=== PATIENT | female | born 1980 | race Caucasian/White ===

== ENCOUNTER 2020-06-09 23:13 | Emergency (ER) | payer MEDICAID ==
[~2020-06-09] VITALS: Ht 180.3 cm; Wt 82.0 kg
[2020-06-09 23:13] VITALS: BP 152/102
[~2020-06-09 23:13] MED LIST: CEPH-264 PO; OMEP20CA16 PO; OXYC5TAB4 PO; PROM25TA10 PO; [UNRECOGNIZED DRUG - OTHER]
--- NOTE | 2020-06-10 00:13 | PHYS DOC ---
Past History Past Medical History: Liver Disease, UTI Past Surgical History: Appendectomy, Cholecystectomy, , Hysterectomy Smoking: Cigarettes, Quit Less Than 1 Year Alcohol Use: Occasionally Drug Use: None, Marijuana General Adult EDM: Chief Complaint: DENTAL PROBLEM HPI: HPI: "...I got bad left ear and now bad tooth. On the right lower.... I tried to pull it out.. but .. I think it is infected. now.." Patient is a 39 year old female who presents with above hx and complaints of dental pain at 31. Pt. also complaints Lt ear pain. Patient apparently has used pliers in attempt to remove tooth #31. Apparently has retained roots at the site with obvious infection and drainage. Entire right side of face is swollen. Does have adenopathy at angle jaw and neck. Patient has multiple other areas of dental decay. Patient also has obvious otitis media in left ear. Patient denies any history immunosuppression. No recent travel outside [facility]. No specific ill contacts. Patient does smoke tobacco marijuana. Review of Systems: Review of Systems: Constitutional: Complains of fever or chills Eyes: Denies change in visual acuity HENT: Complains of left ear pain and right jaw pain and facial cellulitis Respiratory: Denies cough or shortness of breath Cardiovascular: Denies chest pain or edema GI: Denies abdominal pain, nausea, vomiting, bloody stools or diarrhea : Denies dysuria Musculoskeletal: Denies back pain or joint pain Integument: Denies rash Neurologic: Denies headache, focal weakness or sensory changes Endocrine: Denies polyuria or polydipsia Lymphatic: Denies swollen glands Psychiatric: Denies depression or anxiety Family History: Family History: Noncontributory to presentation Current Medications: Current Meds: See nursing for home meds Allergies: Allergies: Allergies Coded Allergies Type Severity Reaction Last Updated Verified adhesive Allergy Mild Rash 07/10/13 Yes Physical Exam: PE: Constitutional: in acute distress, non-toxic appearance. [] HENT: Normocephalic, has obvious extraction site at tooth 31 with retained roots, drainage and inflammation, bilateral external ears normal, left TM has fluid and injection, oropharynx moist, no oral exudates, nose swollen turbinates clear rhinorrhea. Facial cellulitis on right with edema and swelling. Eyes: PERRLA, EOMI, conjunctiva normal, no discharge. [] Neck: Normal range of motion, no tenderness, supple, no stridor. Adenopathy at angle of right mandible and anterior cervical chain. Cardiovascular: Tachycardia heart rate regular rhythm, no murmur [] Lungs & Thorax: Bilateral breath sounds equal apex with scattered wheezes on auscultation [] Abdomen: Bowel sounds normal, soft, no tenderness, no masses, no pulsatile masses. Old surgical scars Skin: Warm, dry, no erythema, no rash. [] Back: No tenderness, no CVA tenderness. [] Extremities: No tenderness, no cyanosis, no clubbing, ROM intact, no edema. [] Neurologic: Alert and oriented X 3, normal motor function, normal sensory function, no focal deficits noted. [] Psychologic: Affect anxious, judgement normal, mood normal. [] EKG: EKG: [] Radiology/Procedures: Radiology/Procedures: [] Heart Score: C/O Chest Pain: N/A Risk Factors: Risk Factors: DM, Current or recent (<one month) smoker, HTN, HLP, family history of CAD, obesity. Risk Scores: Score 0 - 3: 2.5% MACE over next 6 weeks - Discharge Home Score 4 - 6: 20.3% MACE over next 6 weeks - Admit for Clinical Observation Score 7 - 10: 72.7% MACE over next 6 weeks - Early Invasive Strategies Course & Med Decision Making: Course & Med Decision Making Pertinent Labs and Imaging studies reviewed. (See chart for details) Patient replace sugarless gum or gauze with "warm all over open extraction site at tooth 31. Take Tylenol ibuprofen for pain. Must follow-up with dentist. Take Keflex 500 mg 3 times a day. Advised patient nothing we do the ED will fix the underlying problem of her pain and must follow-up with a dentist. Encourage patient not to smoke. Return if any concerns. Impression: 1. Dental pain 2. Right facial cellulitis-source appears to be the dental infection at attempted extraction of tooth 31 3. Left otitis media [] Dragon Disclaimer: Sesar Disclaimer: This electronic medical record was generated, in whole or in part, using a voice recognition dictation system. Departure Departure: Referrals: PCP,UNKNOWN (PCP) Scripts Cephalexin (KEFLEX) 750 Mg Capsule 500 MG PO TID for dental infection, #30 CAP Prov: VANESSA ADAMS MD 06/10/20 Sesar Disclaimer This chart was dictated in whole or in part using Voice Recognition software in a busy, high-work load, and often noisy Emergency Department environment. It may contain unintended and wholly unrecognized errors or omissions. VANESSA ADAMS MD Jun 10, 2020 00:13
[2020-06-10] MEDS ORDERED: HYDROcodon/IBUPROFEN 7.5/200MG 1 TAB TABLET PO ONE (00:45)
[2020-06-10] MEDS ORDERED: cefTRIAXone IM 1 GM VIAL IM ONE (00:45)
[2020-06-10] MEDS ORDERED: CEPH750C9 PO (00:46)
[2020-06-11] MEDS ORDERED: ONDA4TAB7 PO (23:19)
[2020-06-11] MEDS ORDERED: HYDR-2155 PO (23:19)
[2020-06-11] MEDS ORDERED: PROM12.58 PO (23:37)
== END 2020-06-10 01:50 | disposition home or self-care (01) ==
LOC: ER 23:13
DX: L03.211 Cellulitis of face (principal); H66.92 Otitis media, unspecified, left ear; K08.89 Other specified disorders of teeth and supporting structures; Z87.440 Personal history of urinary (tract) infections; Z87.891 Personal history of nicotine dependence; Z90.89 Acquired absence of other organs; Z90.49 Acquired absence of other specified parts of digestive tract; Z90.710 Acquired absence of both cervix and uterus; Z98.890 Other specified postprocedural states; Z88.8 Allergy status to other drugs, medicaments and biological substances
CPT/HCPCS: 96372; 99283; J0696

== ENCOUNTER 2020-06-11 19:56 | Emergency (ER) | payer MEDICAID ==
[~2020-06-11] VITALS: Ht 180.3 cm; Wt 83.0 kg
[~2020-06-11 19:56] MED LIST changes: +CEPH750C9 PO
[2020-06-11 21:30] LABS: BASO # 0.1 x10^3/uL (0.0-0.2); BASO % 1 % (0-3); EOS # 0.3 x10^3/uL (0.0-0.7); EOS % 4 % (0-3); HEMATOCRIT 37.1 % (36.0-47.0); HEMOGLOBIN 12.7 g/dL (12.0-15.5); LYMPH # 1.1 x10^3/uL (1.0-4.8); LYMPH % 14 % (24-48); MEAN CORPUSCULAR HEMOGLOBIN 32 pg (25-35); MEAN CORPUSCULAR HGB CONC 34 g/dL (31-37); MEAN CORPUSCULAR VOLUME 93 fL (79-100); MONO # 0.5 x10^3/uL (0.0-1.1); MONO % 6 % (0-9); NEUT # 6.3 x10^3uL (1.8-7.7); NEUT % 76 % (31-73); PLATELET COUNT 312 x10^3/uL (140-400); RED CELL DISTRIBUTION WIDTH 12.2 % (11.5-14.5); WHITE BLOOD COUNT 8.3 x10^3/uL (4.0-11.0)
[2020-06-11] MEDS ORDERED: MORPHINE SULFATE 4 MG/ML DISP.SYRIN. ONE (21:36)
[2020-06-11] MEDS ORDERED: ONDANSETRON PF 4 MG/2 ML VIAL. ONE (21:36)
[2020-06-11 21:38] LABS: CALCIUM 9.4 mg/dL (8.5-10.1); CREATININE 0.7 mg/dL (0.6-1.0); GFR 94.2; POTASSIUM 4.4 mmol/L (3.5-5.1)
[2020-06-11 21:45] LABS: ALBUMIN 3.7 g/dL (3.4-5.0); ALBUMIN/GLOBULIN RATIO 1.1 (1.0-1.7); TOTAL BILIRUBIN 0.4 mg/dL (0.2-1.0); TOTAL PROTEIN 7.1 g/dL (6.4-8.2)
[2020-06-11] MEDS ORDERED: ONDANSETRON PF 4 MG/2 ML VIAL. IVP ONE ×2 (21:45→23:30)
[2020-06-11] MEDS ORDERED: IV RINGERS SOLUTION,LACTATED 1,000 ML IV ONE (21:45)
[2020-06-11] MEDS ORDERED: MORPHINE SULFATE 4 MG/ML DISP.SYRIN. IV ONE (21:45)
[2020-06-11] MEDS ORDERED: LIDO:MAALOX 1:1 20 ML SINGLE DOSE. ONE (22:13)
[2020-06-11] MEDS ORDERED: LIDO:MAALOX 1:1 20 ML SINGLE DOSE. PO ONE (22:15)
--- NOTE | 2020-06-11 22:15 | PHYS DOC ---
Past History Past Medical History: Liver Disease, Pancreatitis, UTI Past Surgical History: Appendectomy, Cholecystectomy, , Hysterectomy Smoking: Cigarettes, Quit Less Than 1 Year Alcohol Use: None Drug Use: None, Marijuana Adult General Chief Complaint Chief Complaint: ABDOMINAL PAIN HPI HPI Patient is a 39-year-old female with a past medical history significant for pancreatitis who presents with epigastric pain. States has been going on about a day, sharp in nature, 8 out of 10, with no radiation. States this feels like a flareup of her pancreatitis. Denies any recent travel, traumas, illnesses, fevers, chest pain, shortness of breath, dysuria, diarrhea, hematuria or blood in the stool. Denies any vaginal bleeding, discharge, pain or history of STIs. Review of Systems Review of Systems Review of systems otherwise unremarkable except noted in HPI Current Medications Current Medications Current Medications Medications (Trade) Dose Ordered Sig/David Start Time Stop Time Status Last Admin Dose Admin Lactated Ringer's 1,000 ml @ 1,000 mls/hr 1X ONCE 06/11/20 21:45 06/11/20 22:44 06/11/20 21:45 1,000 MLS/HR Morphine Sulfate (Morphine 4mg Syringe) 4 mg 1X ONCE 06/11/20 21:45 06/11/20 21:55 DC 06/11/20 21:45 4 MG Ondansetron HCl (Zofran) 4 mg 1X ONCE 06/11/20 21:45 06/11/20 21:55 DC 06/11/20 21:45 4 MG Allergies Allergies Allergies Coded Allergies Type Severity Reaction Last Updated Verified azithromycin Allergy Severe Rash 06/10/20 Yes adhesive Allergy Mild Rash 07/10/13 Yes Physical Exam Physical Exam Constitutional: Well developed, well nourished, no acute distress, non-toxic appearance. [] HENT: Normocephalic, atraumatic, bilateral external ears normal, oropharynx moist, no oral exudates, nose normal. [] Eyes: PERRLA, EOMI, conjunctiva normal, no discharge. [] Neck: Normal range of motion, no tenderness, supple, no stridor. [] Cardiovascular:Heart rate regular rhythm, no murmur [] Lungs & Thorax: Bilateral breath sounds clear to auscultation [] Abdomen: soft, no tenderness, no masses, no pulsatile masses. [] Skin: Warm, dry, no erythema, no rash. [] Back: no CVA tenderness. [] Extremities: No tenderness, no cyanosis, no clubbing, ROM intact, no edema. [] Neurologic: Alert and oriented X 3, normal motor function, normal sensory function, no focal deficits noted. [] Psychologic: Affect normal, judgement normal, mood normal. [] Current Patient Data Vital Signs Vital Signs Date Time Temp Pulse Resp B/P (MAP) Pulse Ox O2 Delivery O2 Flow Rate FiO2 06/11/20 21:45 98 Room Air 06/11/20 19:56 98.2 81 18 166/98 (120) Lab Results Laboratory Tests Test 06/11/20 21:00 White Blood Count 8.3 x10^3/uL (4.0-11.0) Red Blood Count 4.00 x10^6/uL (3.50-5.40) Hemoglobin 12.7 g/dL (12.0-15.5) Hematocrit 37.1 % (36.0-47.0) Mean Corpuscular Volume 93 fL (79-100) Mean Corpuscular Hemoglobin 32 pg (25-35) Mean Corpuscular Hemoglobin Concent 34 g/dL (31-37) Red Cell Distribution Width 12.2 % (11.5-14.5) Platelet Count 312 x10^3/uL (140-400) Neutrophils (%) (Auto) 76 % (31-73) H Lymphocytes (%) (Auto) 14 % (24-48) L Monocytes (%) (Auto) 6 % (0-9) Eosinophils (%) (Auto) 4 % (0-3) H Basophils (%) (Auto) 1 % (0-3) Neutrophils # (Auto) 6.3 x10^3uL (1.8-7.7) Lymphocytes # (Auto) 1.1 x10^3/uL (1.0-4.8) Monocytes # (Auto) 0.5 x10^3/uL (0.0-1.1) Eosinophils # (Auto) 0.3 x10^3/uL (0.0-0.7) Basophils # (Auto) 0.1 x10^3/uL (0.0-0.2) Sodium Level 141 mmol/L (136-145) Potassium Level 4.4 mmol/L (3.5-5.1) Chloride Level 102 mmol/L (98-107) Carbon Dioxide Level 31 mmol/L (21-32) Anion Gap 8 (6-14) Blood Urea Nitrogen 9 mg/dL (7-20) Creatinine 0.7 mg/dL (0.6-1.0) Estimated GFR (Cockcroft-Gault) 94.2 BUN/Creatinine Ratio 13 (6-20) Glucose Level 92 mg/dL (70-99) Calcium Level 9.4 mg/dL (8.5-10.1) Total Bilirubin 0.4 mg/dL (0.2-1.0) Aspartate Amino Transferase (AST) 22 U/L (15-37) Alanine Aminotransferase (ALT) 35 U/L (14-59) Alkaline Phosphatase 138 U/L (46-116) H Total Protein 7.1 g/dL (6.4-8.2) Albumin 3.7 g/dL (3.4-5.0) Albumin/Globulin Ratio 1.1 (1.0-1.7) Lipase 47 U/L (73-393) L EKG EKG [] Radiology/Procedures Radiology/Procedures [] FINDINGS: Heart size is normal. No pericardial effusion. Visualized lung bases are clear. No pleural effusion. Liver, spleen, pancreas and adrenals are unremarkable. Gallbladder is absent. No perinephric inflammation or hydronephrosis. No renal or ureteral calculi are identified. Bladder is decompressed not well evaluated. Uterus is absent. No abnormal adnexal mass. Large and small bowel are unremarkable. Appendix is not identified. No free intra-abdominal air or fluid. No obstruction. Abdominal aorta has a normal course and caliber. No enlarged abdominal lymph nodes are identified. No suspicious osseous lesions or acute fractures. IMPRESSION: No acute process identified within the abdomen or pelvis. Heart Score C/O Chest Pain: No Risk Factors: Risk Factors: DM, Current or recent (<one month) smoker, HTN, HLP, family history of CAD, obesity. Risk Scores: Risk Factors: DM, Current or recent (<one month) smoker, HTN, HLP, family history of CAD, obesity. Course & Med Decision Making Course & Med Decision Making Patient is a 39-year-old female who presents with epigastric pain Vital signs notable for hypertension. Physical exam noted above. IV access established and IV fluid began. Zofran for nausea. Morphine for pain. Patient requested GI cocktail. [Laboratory analysis not concerning. CT with no concerning findings. Urinalysis not concerning and patient with no urinary symptoms. GI cocktail given, gave pain relief. Discussed all findings with family and recommended follow-up with primary care physician first thing in the morning to discuss ED visit and need for further evaluation and treatment. Gave strict return precautions to the ED. Family grateful, verbalized understanding and agreed with plan of discharge. Dragon Disclaimer Dragon Disclaimer This electronic medical record was generated, in whole or in part, using a voice recognition dictation system. Departure Departure: Impression: Primary Impression: Epigastric pain Disposition: 01 DC HOME SELF CARE/HOMELESS Condition: GOOD Referrals: NON,STAFF (PCP) Patient Instructions: Abdominal Pain (Nonspecific), Heartburn Additional Instructions: Please read all of the attached information carefully. Please call your primary care physician first thing in the morning to discuss your ED visit and set up a follow-up to discuss your diagnoses and need for further evaluation and treatment. As discussed, please come back to the emergency department imm ediately with new or concerning symptoms. Scripts Promethazine Hcl (PROMETHAZINE HCL) 12.5 Mg Tablet 2 TAB PO BID for nausea for 5 Days, #20 TAB 0 Refills Prov: BEAN DELA CRUZ MD 06/11/20 Hydrocodone Bit/Acetaminophen (HYDROCODONE-APAP 5-325 ) 1 Each Tablet 1 TAB PO TID PRN for PAIN for 3 Days, #9 TAB 0 Refills Prov: BEAN DELA CRUZ MD 06/11/20 Ondansetron Hcl (ZOFRAN) 4 Mg Tablet 1 TAB PO PRN Q6HRS PRN for NAUSEA for 5 Days, #20 TAB Prov: BEAN DELA CRUZ MD 06/11/20 BEAN DELA CRUZ MD Jun 11, 2020 22:15
--- NOTE | 2020-06-11 23:01 | RAD ---
Exam: CT of abdomen and pelvis without contrast INDICATION: Epigastric pain TECHNIQUE: Sequential axial images through the abdomen and pelvis obtained without IV contrast. Sagit twin and coronal reformatted images were reconstructed from the axial data and reviewed. Comparisons: None FINDINGS: Heart size is normal. No pericardial effusion. Visualized lung bases are clear. No pleural effusion. Liver, spleen, pancreas and adrenals are unremarkable. Gallbladder is absent. No perinephric inflammation or hydronephrosis. No renal or ureteral calculi are identified. Bladder is decompressed not well evaluated. Uterus is absent. No abnormal adnexal mass. Large and small bowel are unremarkable. Appendix is not identified. No free intra-abdominal air or fl uid. No obstruction. Abdominal aorta has a normal course and caliber. No enlarged abdominal lymph nodes are identified. No suspicious osseous lesions or acute fractures. IMPRESSION: No acute process identified within the abdomen or pelvis. Exposure: One or more of the following in the visualized dose reduction techniques were utilized for this examination: 1. Automated exposure control 2. Adjustment of the MA and/or KV according to patient size 3. Use of iterative of reconstructive technique Electronically signed by: Ramin Jim MD (06/11/2020 10:59 PM) [facility]
[2020-06-11] MEDS ORDERED: HYDR-2155 PO (23:19)
[2020-06-11] MEDS ORDERED: ONDA4TAB7 PO (23:19)
[2020-06-11] MEDS ORDERED: oxyCODONE/APAP 5/325 1 TAB TABLET PO ONE (23:30)
[2020-06-11] MEDS ORDERED: PROM12.58 PO (23:37)
[2020-06-11 23:40] VITALS: BP 138/84
== END 2020-06-11 23:40 | disposition home or self-care (01) ==
LOC: ER 19:56
DX: R10.13 Epigastric pain (principal); Z87.440 Personal history of urinary (tract) infections; Z87.891 Personal history of nicotine dependence; Z90.89 Acquired absence of other organs; Z90.49 Acquired absence of other specified parts of digestive tract; Z90.710 Acquired absence of both cervix and uterus; Z98.890 Other specified postprocedural states; Z88.1 Allergy status to other antibiotic agents; Z88.8 Allergy status to other drugs, medicaments and biological substances
CPT/HCPCS: 36415; 74176; 80053; 83690; 85025; 96361; 96374; 96375; 96376; 99285; J2270; J2405; J7120